=== PATIENT | female | born 1995 | race American Indian/Alaskan Native ===

== ENCOUNTER 2018-07-11 13:25 | Emergency (ER) | payer MEDICAID ==
[2018-07-11 13:32] VITALS: BP 125/78
--- NOTE | 2018-07-11 16:46 | Emergency Department Report ---
Chief Complaint: Headache Stated Complaint: HEAD PAIN Time Seen by Provider: 07/11/18 16:32 - HPI History of Present Illness: Patient is a 23-year-old healthy female with no past medical history, who presents to ED complaining that she has been under a lot of stress for the past several months. She says she is worried that she is awake, she is given headaches and bumps of her face. She also states she has no appetite, patient states she feels that she is losing weight unintentionally. Patient states last month she was prescribed some anxiety medicine but does not recall the name. She does not see the sinus shows/nausea vomiting/abdominal pain/dizziness chest pain shortness of breath. - ROS Review of Systems: See HPI - Exam Vital Signs: Vital Signs 07/11/18 13:30 Temperature 98 F Pulse Rate 86 Respiratory 16 Rate Blood Pressure 125/78 O2 Sat by Pulse 100 Oximetry Physical Exam: GENERAL: Alert and oriented x3, no apparent distress, Normal Gait, atraumatic. HEAD: Head is normocephalic and a-traumatic. LUNGS: Symetrical with respiration, CTAB. HEART: S1, S2 present, regular rate and rhythm without murmur, SKIN: Warm and dry, No lesions, No ulceration or induration present. MSE screening note: Focused history and physical exam performed. Due to findings the following was ordered: ED Medical Decision Making - Medical Decision Making 23-year-old female presents with STD concerns Discussed the patient to go to assess [facility]. Referral given. Patient states she is not in pain now. Vital signs normal she has no acute or respiratory distress [facility] clinic info sheet given to patient to follow up ED Disposition for MSE Clinical Impression: Stress at home, Possible exposure to STD Disposition: DC-01 TO HOME OR SELFCARE Is pt being admited?: No Does the pt Need Aspirin: No Condition: Stable Instructions: Safe Sex (ED), Sexually Transmitted Diseases in Adolescents (ED) Additional Instructions: Make sure to follow up with the [facility] for STD testing as discussed. Take all your medications as you've been prescribed. If you have any worsening symptoms or develop new symptoms please return to ED immediately. Referrals: [facility] [Outside] - 3-5 Days [facility] [Outside] - 3-5 Days Forms: Work/School Release Form(ED) Time of Disposition: 16:43
== END 2018-07-11 16:50 | disposition home or self-care (01) ==
LOC: ED 13:25
DX: F43.9 Reaction to severe stress, unspecified (principal); Z20.2 Contact with and (suspected) exposure to infections with a predominantly sexual mode of transmission
CPT/HCPCS: 99282

== ENCOUNTER 2018-09-24 16:37 | Emergency (ER) | payer SELFPAY ==
[2018-09-24 16:51] VITALS: BP 117/69
[2018-09-24 18:12] LABS: BUN/Creatinine Ratio 8; Basophils % (Auto) 0.6 % (0.0-1.8); Blood Urea Nitrogen 9 mg/dL (7-17); Calcium 9.2 mg/dL (8.4-10.2); Eosinophils % (Auto) 0.6 % (0.0-4.3); Hematocrit 36.7 % (30.3-42.9); Hemoglobin 11.7 gm/dl (10.1-14.3); Hemolysis Index 7; Lymphocytes # (Auto) 1.9 K/mm3 (1.2-5.4); Lymphocytes % (Auto) 23.3 % (13.4-35.0); Mean Corpuscular HGB Conc 32 % (30-34); Mean Corpuscular Volume 81 fl (79-97); Monocytes # (Auto) 0.5 K/mm3 (0.0-0.8); Monocytes % (Auto) 6.6 % (0.0-7.3); Platelet Count 199 K/mm3 (140-440); Red Blood Count 4.51 M/mm3 (3.65-5.03); Red Cell Distribution Width 15.7 % (13.2-15.2)
== END 2018-09-24 18:04 | disposition left against medical advice (07) ==
LOC: ED 16:37
DX: R45.851 Suicidal ideations (principal); Z53.21 Procedure and treatment not carried out due to patient leaving prior to being seen by health care provider
CPT/HCPCS: 36415; 80048; 85025; G0480; 80320